=== PATIENT | female | born 1985 | race Caucasian/White ===

== ENCOUNTER 2019-01-26 11:22 | Outpatient (CLI) | payer MEDICAID ==
[2019-01-26 17:30] LABS: HGB - HEMOGLOBIN 13.1 g/dL (12.0-16.0); MEAN CORPUSCULAR HEMOGLOBIN 31.5 pg (27.0-31.0); MEAN CORPUSCULAR HGB CONC 33.8 g/dL (32.0-36.0); MEAN CORPUSCULAR VOLUME 93.3 fL (81.0-99.0); MEAN PLATELET VOLUME 10.5 fL (7.9-10.8); RED BLOOD COUNT 4.16 10^6/uL (4.20-5.40); RED CELL DISTRIBUTION WIDTH 13.2 % (12.0-15.0); WHITE BLOOD COUNT 5.9 x10^3/uL (4.8-10.8)
[2019-01-26 18:13] LABS: ALBUMIN/GLOBULIN RATIO 1.3 (1.0-2.2); CALCIUM 9.4 mg/dL (8.5-10.3); CREATININE 0.5 mg/dL (0.4-1.0); TOTAL PROTEIN 7.1 g/dL (6.7-8.2)
== END 2019-01-26 11:23 | disposition home or self-care (01) ==
LOC: LAB.S 11:22
PROVIDERS: ATTEND Internal Medicine
DX: I51.3 Intracardiac thrombosis, not elsewhere classified (principal); Z79.01 Long term (current) use of anticoagulants; I50.9 Heart failure, unspecified
CPT/HCPCS: 36415; 80053; 84443; 85027; 85610

== ENCOUNTER 2019-02-02 10:51 | Outpatient (CLI) | payer MEDICAID | END 2019-02-02 10:52 | disposition home or self-care (01) | LOC: LAB.S 10:51 | PROVIDERS: ATTEND Internal Medicine | DX: Z79.01 Long term (current) use of anticoagulants (principal); I51.3 Intracardiac thrombosis, not elsewhere classified | CPT/HCPCS: 85610 ==

== ENCOUNTER 2019-02-10 11:29 | Outpatient (CLI) | payer MEDICAID | END 2019-02-10 11:30 | disposition home or self-care (01) | LOC: LAB.S 11:29 | PROVIDERS: ATTEND Internal Medicine | DX: I51.3 Intracardiac thrombosis, not elsewhere classified (principal); Z79.01 Long term (current) use of anticoagulants | CPT/HCPCS: 85610 ==

== ENCOUNTER 2019-02-17 11:31 | Outpatient (CLI) | payer MEDICAID | END 2019-02-17 11:32 | disposition home or self-care (01) | LOC: LAB.S 11:31 | PROVIDERS: ATTEND Internal Medicine | DX: Z79.01 Long term (current) use of anticoagulants (principal); I51.3 Intracardiac thrombosis, not elsewhere classified | CPT/HCPCS: 85610 ==

== ENCOUNTER 2019-02-24 12:50 | Outpatient (CLI) | payer MEDICAID | END 2019-02-24 12:51 | disposition home or self-care (01) | LOC: LAB.S 12:50 | PROVIDERS: ATTEND Internal Medicine | DX: Z79.01 Long term (current) use of anticoagulants (principal); I51.3 Intracardiac thrombosis, not elsewhere classified | CPT/HCPCS: 85610 ==

== ENCOUNTER 2019-03-03 11:34 | Outpatient (CLI) | payer MEDICAID | END 2019-03-03 11:35 | disposition home or self-care (01) | LOC: LAB.S 11:34 | PROVIDERS: ATTEND Internal Medicine | DX: Z79.01 Long term (current) use of anticoagulants (principal); I51.3 Intracardiac thrombosis, not elsewhere classified | CPT/HCPCS: 85610 ==

== ENCOUNTER 2019-03-10 13:34 | Outpatient (CLI) | payer MEDICAID | END 2019-03-10 13:35 | disposition home or self-care (01) | LOC: LAB.S 13:34 | PROVIDERS: ATTEND Internal Medicine | DX: Z79.01 Long term (current) use of anticoagulants (principal); I51.3 Intracardiac thrombosis, not elsewhere classified | CPT/HCPCS: 85610 ==

== ENCOUNTER 2019-03-24 13:52 | Outpatient (CLI) | payer MEDICAID | END 2019-03-24 13:53 | disposition home or self-care (01) | LOC: LAB.S 13:52 | PROVIDERS: ATTEND Internal Medicine | DX: Z79.01 Long term (current) use of anticoagulants (principal); I51.3 Intracardiac thrombosis, not elsewhere classified | CPT/HCPCS: 85610 ==

== ENCOUNTER 2019-04-22 12:30 | Outpatient (CLI) | payer MEDICAID | END 2019-04-22 12:31 | disposition home or self-care (01) | LOC: LAB.S 12:30 | PROVIDERS: ATTEND Internal Medicine | DX: Z79.01 Long term (current) use of anticoagulants (principal); I51.3 Intracardiac thrombosis, not elsewhere classified | CPT/HCPCS: 85610 ==

== ENCOUNTER 2019-05-20 11:26 | Outpatient (CLI) | payer MEDICAID | END 2019-05-20 11:27 | disposition home or self-care (01) | LOC: LAB.S 11:26 | PROVIDERS: ATTEND Internal Medicine | DX: Z79.01 Long term (current) use of anticoagulants (principal); I51.3 Intracardiac thrombosis, not elsewhere classified | CPT/HCPCS: 85610 ==

== ENCOUNTER 2019-05-27 13:15 | Outpatient (CLI) | payer MEDICAID | END 2019-05-27 13:16 | disposition home or self-care (01) | LOC: LAB.S 13:15 | PROVIDERS: ATTEND Internal Medicine | DX: Z79.01 Long term (current) use of anticoagulants (principal); I51.3 Intracardiac thrombosis, not elsewhere classified | CPT/HCPCS: 85610 ==

== ENCOUNTER 2019-06-15 14:09 | Outpatient (CLI) | payer MEDICAID | END 2019-06-15 14:10 | disposition home or self-care (01) | LOC: LAB.S 14:09 | PROVIDERS: ATTEND Internal Medicine | DX: I51.3 Intracardiac thrombosis, not elsewhere classified (principal); Z79.01 Long term (current) use of anticoagulants | CPT/HCPCS: 85610 ==

== ENCOUNTER 2019-06-22 13:10 | Outpatient (CLI) | payer MEDICAID | END 2019-06-22 13:11 | disposition home or self-care (01) | LOC: LAB.S 13:10 | PROVIDERS: ATTEND Internal Medicine | DX: Z79.01 Long term (current) use of anticoagulants (principal); I51.3 Intracardiac thrombosis, not elsewhere classified | CPT/HCPCS: 85610 ==

== ENCOUNTER 2019-06-29 11:59 | Outpatient (CLI) | payer MEDICAID | END 2019-06-29 12:00 | disposition home or self-care (01) | LOC: LAB.S 11:59 | PROVIDERS: ATTEND Internal Medicine | DX: I51.3 Intracardiac thrombosis, not elsewhere classified (principal); Z79.01 Long term (current) use of anticoagulants | CPT/HCPCS: 85610 ==

== ENCOUNTER 2019-07-14 13:08 | Outpatient (CLI) | payer MEDICAID | END 2019-07-14 13:09 | disposition home or self-care (01) | LOC: LAB.S 13:08 | PROVIDERS: ATTEND Internal Medicine | DX: I51.3 Intracardiac thrombosis, not elsewhere classified (principal); Z79.01 Long term (current) use of anticoagulants | CPT/HCPCS: 85610 ==

== ENCOUNTER 2019-07-19 13:58 | Outpatient (CLI) | payer MEDICAID | END 2019-07-19 13:59 | disposition home or self-care (01) | LOC: LAB.S 13:58 | PROVIDERS: ATTEND Internal Medicine | DX: I51.3 Intracardiac thrombosis, not elsewhere classified (principal); Z79.01 Long term (current) use of anticoagulants | CPT/HCPCS: 85610 ==

== ENCOUNTER 2019-07-26 11:05 | Outpatient (CLI) | payer MEDICAID | END 2019-07-26 11:06 | disposition home or self-care (01) | LOC: LAB.S 11:05 | PROVIDERS: ATTEND Internal Medicine | DX: I51.3 Intracardiac thrombosis, not elsewhere classified (principal); Z79.01 Long term (current) use of anticoagulants | CPT/HCPCS: 85610 ==

== ENCOUNTER 2019-09-03 12:25 | Outpatient (CLI) | payer MEDICAID | END 2019-09-03 12:26 | disposition home or self-care (01) | LOC: LAB 12:25 | PROVIDERS: ATTEND Internal Medicine | DX: I51.3 Intracardiac thrombosis, not elsewhere classified (principal); Z79.01 Long term (current) use of anticoagulants | CPT/HCPCS: 85610 ==

== ENCOUNTER 2019-10-18 12:39 | Outpatient (CLI) | payer MEDICAID | END 2019-10-18 12:40 | disposition home or self-care (01) | LOC: LAB.S 12:39 | PROVIDERS: ATTEND Internal Medicine | DX: I51.3 Intracardiac thrombosis, not elsewhere classified (principal); Z79.01 Long term (current) use of anticoagulants | CPT/HCPCS: 85610 ==

== ENCOUNTER 2019-10-25 14:43 | Outpatient (CLI) | payer MEDICAID | END 2019-10-25 14:44 | disposition home or self-care (01) | LOC: LAB.S 14:43 | PROVIDERS: ATTEND Internal Medicine | DX: I51.3 Intracardiac thrombosis, not elsewhere classified (principal); Z79.01 Long term (current) use of anticoagulants | CPT/HCPCS: 85610 ==

== ENCOUNTER 2019-10-29 13:23 | Outpatient (CLI) | payer MEDICAID | END 2019-10-29 13:24 | disposition home or self-care (01) | LOC: LAB.S 13:23 | PROVIDERS: ATTEND Internal Medicine | DX: I51.3 Intracardiac thrombosis, not elsewhere classified (principal); Z79.01 Long term (current) use of anticoagulants | CPT/HCPCS: 85610 ==

== ENCOUNTER 2019-11-05 13:06 | Outpatient (CLI) | payer MEDICAID | END 2019-11-05 13:07 | disposition home or self-care (01) | LOC: LAB.S 13:06 | PROVIDERS: ATTEND Internal Medicine | DX: I51.3 Intracardiac thrombosis, not elsewhere classified (principal); Z79.01 Long term (current) use of anticoagulants | CPT/HCPCS: 85610 ==

== ENCOUNTER 2019-11-19 11:47 | Outpatient (CLI) | payer MEDICAID | END 2019-11-19 11:48 | disposition home or self-care (01) | LOC: LAB.S 11:47 | PROVIDERS: ATTEND Internal Medicine | DX: I51.3 Intracardiac thrombosis, not elsewhere classified (principal); Z79.01 Long term (current) use of anticoagulants | CPT/HCPCS: 85610 ==

== ENCOUNTER 2019-12-20 08:48 | Outpatient (CLI) | payer MEDICAID | END 2019-12-20 08:49 | disposition home or self-care (01) | LOC: LAB 08:48 | PROVIDERS: ATTEND Internal Medicine | DX: I51.3 Intracardiac thrombosis, not elsewhere classified (principal); Z79.01 Long term (current) use of anticoagulants | CPT/HCPCS: 85610 ==

== ENCOUNTER 2020-01-28 13:38 | Outpatient (CLI) | payer MEDICAID | END 2020-01-28 13:39 | disposition home or self-care (01) | LOC: LAB 13:38 | PROVIDERS: ATTEND Internal Medicine | DX: I51.3 Intracardiac thrombosis, not elsewhere classified (principal) | CPT/HCPCS: 85610 ==

== ENCOUNTER 2020-01-31 11:20 | Outpatient (CLI) | payer MEDICAID | END 2020-01-31 11:21 | disposition home or self-care (01) | LOC: LAB 11:20 | PROVIDERS: ATTEND Internal Medicine | DX: I51.3 Intracardiac thrombosis, not elsewhere classified (principal); Z79.01 Long term (current) use of anticoagulants | CPT/HCPCS: 85610 ==

== ENCOUNTER 2020-02-08 15:03 | Outpatient (CLI) | payer MEDICAID | END 2020-02-08 15:04 | disposition home or self-care (01) | LOC: LAB 15:03 | PROVIDERS: ATTEND Internal Medicine | DX: I51.3 Intracardiac thrombosis, not elsewhere classified (principal); Z79.01 Long term (current) use of anticoagulants | CPT/HCPCS: 85610 ==

== ENCOUNTER 2020-02-17 10:04 | Outpatient (CLI) | payer MEDICAID | END 2020-02-17 10:05 | disposition home or self-care (01) | LOC: LAB 10:04 | PROVIDERS: ATTEND Internal Medicine | DX: I51.3 Intracardiac thrombosis, not elsewhere classified (principal); Z79.01 Long term (current) use of anticoagulants | CPT/HCPCS: 85610 ==

== ENCOUNTER 2020-03-31 14:40 | Outpatient (CLI) | payer MEDICAID | END 2020-03-31 14:41 | disposition home or self-care (01) | LOC: LAB 14:40 | PROVIDERS: ATTEND Physician Assistant | DX: Z79.01 Long term (current) use of anticoagulants (principal) | CPT/HCPCS: 85610 ==

== ENCOUNTER 2020-04-25 12:52 | Outpatient (CLI) | payer MEDICAID | END 2020-04-25 12:53 | disposition home or self-care (01) | LOC: LAB 12:52 | PROVIDERS: ATTEND Physician Assistant | DX: Z79.01 Long term (current) use of anticoagulants (principal) | CPT/HCPCS: 85610 ==

== ENCOUNTER 2020-05-04 11:39 | Outpatient (CLI) | payer MEDICAID | END 2020-05-04 11:40 | disposition home or self-care (01) | LOC: LAB 11:39 | PROVIDERS: ATTEND Physician Assistant | DX: Z79.01 Long term (current) use of anticoagulants (principal) | CPT/HCPCS: 85610 ==

== ENCOUNTER 2020-07-06 11:02 | Outpatient (CLI) | payer MEDICAID ==
[2020-07-06 11:42] LABS: BASOPHILS # (AUTO) 0.1 10^3/uL (0.0-0.1); BASOPHILS % (AUTO) 0.5 %; EOSINOPHILS # (AUTO) 0.6 10^3/uL (0.0-0.7); EOSINOPHILS % (AUTO) 6.1 %; HCT - HEMATOCRIT 25.5 % (37.0-47.0); HGB - HEMOGLOBIN 7.9 g/dL (12.0-16.0); LYMPHOCYTES # (AUTO) 1.3 10^3/uL (1.5-3.5); MEAN PLATELET VOLUME 9.8 fL (7.9-10.8); MONOCYTES # (AUTO) 0.7 10^3/uL (0.0-1.0); MONOCYTES % (AUTO) 7.2 %; NEUTROPHILS # (AUTO) 7.3 10^3/uL (1.5-6.6); NEUTROPHILS % (AUTO) 71.7 %; NRBC ABSOLUTE COUNT (AUTO) 0.02 x10^3/uL; NUCLEATED RED BLOOD CELLS AUTO 0.2 /100WBC; PLT - PLATELET COUNT 163 10^3/uL (130-450); RED BLOOD COUNT 2.55 10^6/uL (4.20-5.40); RED CELL DISTRIBUTION WIDTH 14.2 % (12.0-15.0); WHITE BLOOD COUNT 10.2 x10^3/uL (4.8-10.8)
== END 2020-07-06 11:03 | disposition home or self-care (01) ==
LOC: LAB 11:02
PROVIDERS: ATTEND Thoracic Surgery (Cardiothoracic Vascular Surgery)
DX: D15.1 Benign neoplasm of heart (principal); Z79.01 Long term (current) use of anticoagulants
CPT/HCPCS: 36415; 85025; 85610

== ENCOUNTER 2020-07-24 16:37 | Outpatient (CLI) | payer MEDICAID | END 2020-07-24 16:38 | disposition home or self-care (01) | LOC: COV 16:37 | PROVIDERS: ATTEND Radiology Diagnostic Radiology | DX: Z01.812 Encounter for preprocedural laboratory examination (principal); Z20.822 Contact with and (suspected) exposure to COVID-19 ==

== ENCOUNTER 2020-11-24 10:02 | Emergency (ER) | payer MEDICAID ==
[2020-11-24 10:20] VITALS: BP 106/93
--- NOTE | 2020-11-24 10:38 | ED Physician Documentation ---
History of Present Illness - Stated complaint Stated Complaint: LT LEG SWELLING - Chief complaint Chief Complaint: Wound - History obtained from History obtained from: Patient - History of Present Illness Timing: Yesterday Pain level max: 0 Pain level now: 0 - Additonal information Additional information: Patient is a 35-year-old female who presents to the emergency department with swelling to the left thigh. She received several vaccinations yesterday as she has had a splenectomy. She received her meningitis vaccinations and then a pneumococcal vaccination. Concerned about potential cellulitis. No fevers. No chills. She states that the area is red, swollen and warm. Nothing makes it better or worse Review of Systems Constitutional: denies: Fever, Chills GI: denies: Vomiting, Diarrhea Skin: denies: Rash Musculoskeletal: denies: Neck pain, Back pain Neurologic: denies: Headache PD PAST MEDICAL HISTORY - Past Medical History Past Medical History: No - Past Surgical History Other past surgical history: splenectomy - Present Medications Home Medications: Ambulatory Orders Medication Instructions Recorded Confirmed Escitalopram Oxalate [Lexapro] 1 tab PO DAILY 11/24/20 11/24/20 Losartan Potassium 12.5 mg PO DAILY 11/24/20 11/24/20 Rivaroxaban [Xarelto] 1 tab PO DAILY 11/24/20 11/24/20 carvediloL [Coreg] 1 tab PO BID 11/24/20 11/24/20 cephALEXin [Keflex] 500 mg PO Q6H #28 cap 11/24/20 - Allergies Allergies/Adverse Reactions: Allergies Allergy/AdvReac Type Severity Reaction Status Date / Time heparin Allergy Unknown Verified 11/24/20 10:20 - Living Situation Living Situation: reports: With family Living Arrangement: reports: At home - Social History Does the pt have substance abuse?: No PD ED PE NORMAL - Vitals Vital signs reviewed: Yes - General General: Alert and oriented X 3, No acute distress - HEENT HEENT: Moist mucous membranes - Neck Neck: Supple, no meningeal sign - Cardiac Cardiac: RRR - Respiratory Respiratory: No respiratory distress - Derm Derm: Warm and dry - Extremities Extremities: Other (Mild erythema to the left thigh at the injection site. Light pink in color. Not warm. Mild swelling.) - Neuro Neuro: Alert and oriented X 3 - Psych Psych: Normal mood, Normal affect Results - Vitals Vitals: Vital Signs - 24 hr 11/24/20 10:14 Temperature 36.3 C L Heart Rate 79 Respiratory 16 Rate Blood Pressure 106/93 H O2 Saturation 96 Oxygen O2 Source Room air PD MEDICAL DECISION MAKING - ED course Complexity details: reviewed results, re-evaluated patient, considered differential, d/w patient ED course: Patient appears to have a localized reaction to the vaccination from yesterday, likely pneumococcal vaccine. Does not appear infected at this time. If this does not improve as expected, she can start the cephalexin and follow-up with her doctor next week. No evidence of anaphylaxis. No respiratory difficulties. Patient counseled regarding signs and symptoms for which I believe and urgent re-evaluation would be necessary. Patient with good understanding of and agreement to plan and is comfortable going home at this time This document was made in part using voice recognition software. While efforts are made to proofread this document, sound alike and grammatical errors may occur. Departure - Departure Disposition: 01 Home, Self Care Clinical Impression: Local reaction to pneumococcal vaccine Qualifiers: Encounter type: initial encounter Qualified Code(s): T50.A95A - Adverse effect of other bacterial vaccines, initial encounter Condition: Good Instructions: Vaccination Pneumococcal Follow-Up: DO BEARD PA-C [Primary Care Provider] - As Needed Prescriptions: cephALEXin [Keflex] 500 mg PO Q6H #28 cap Comments: This appears to be a local reaction to the vaccine you received yesterday, it should improve over the next 24 hours, if it worsens, you can start the antibiotics. Discharge Date/Time: 11/24/20 10:45
== END 2020-11-24 10:45 | disposition home or self-care (01) ==
LOC: ED 10:02
DX: M79.89 Other specified soft tissue disorders (principal); T50.A95A Adverse effect of other bacterial vaccines, initial encounter; Z79.01 Long term (current) use of anticoagulants
CPT/HCPCS: 99282; 99284

== ENCOUNTER 2021-05-26 05:16 | Emergency (ER) | payer MEDICAID ==
--- NOTE | 2021-05-26 05:35 | ED Physician Documentation ---
History of Present Illness - Stated complaint Stated Complaint: FEVER, SORE THROAT, BODY ACHE, CHILLS, DIZZY - Chief complaint Chief Complaint: General - History obtained from History obtained from: Patient - History of Present Illness Timing: Enter time (03:30), Today Pain level now: 4 (generalized myalgias) Improved by: no ameliorating factors Worsened by: no excerbating factors - Additonal information Additional information: woke at 3:30 AM this morning with generalized myalgias, fever 101.4, generalize headache, jaw pain, sore throat, mild dyspnea, dry cough. She is not COVID vaccinated (she says one of her medical practitioners advised against it). She has medical history that includes PPM, atrial fibrilation, and multiple atrial myxomas requiring surgical removal. 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 Review of Systems Constitutional: reports: Fever, Chills, Myalgias, Sweats Nose: reports: Rhinorrhea / runny nose, Congestion Throat: reports: Sore throat Cardiac: reports: Chest pain / pressure. denies: Palpitations, Pedal edema Respiratory: reports: Dyspnea, Cough GI: reports: Reviewed and negative Neurologic: reports: Headache PD PAST MEDICAL HISTORY - Past Medical History Past Medical History: Yes Cardiovascular: Hypertension, Atrial fibrillation, Valve disorder Other Past Medical History: atrial myxomas - Past Surgical History Past Surgical History: Yes General: Splenectomy - Present Medications Home Medications: Ambulatory Orders Medication Instructions Recorded Confirmed Escitalopram Oxalate [Lexapro] 1 tab PO DAILY 11/24/20 11/24/20 Losartan Potassium 12.5 mg PO DAILY 11/24/20 11/24/20 Rivaroxaban [Xarelto] 1 tab PO DAILY 11/24/20 11/24/20 carvediloL [Coreg] 1 tab PO BID 11/24/20 11/24/20 cephALEXin [Keflex] 500 mg PO Q6H #28 cap 11/24/20 - Allergies Allergies/Adverse Reactions: Allergies Allergy/AdvReac Type Severity Reaction Status Date / Time heparin Allergy Unknown Verified 05/26/21 05:25 - Living Situation Living Arrangement: reports: At home - Social History Does the pt have substance abuse?: No PD ED PE NORMAL - Vitals Vital signs reviewed: Yes - General General: Alert and oriented X 3, No acute distress, Well developed/nourished - HEENT HEENT: Pharynx benign - Neck Neck: Supple, no meningeal sign - Cardiac Cardiac: RRR, No murmur - Respiratory Respiratory: No respiratory distress, Clear bilaterally - Abdomen Abdomen: Soft, Non tender - Extremities Extremities: No edema Results - Vitals Vitals: Oxygen O2 Source Room air - EKG (time done) No standard instances Rate: Rate (enter#) (80) Rhythm: Paced (atrial-sensed, ventricular paced) - Labs Labs: Laboratory Tests 05/26/21 05/26/21 05:48 08:47 Troponin I High Sens 3.5 Nasal Adenovirus (PCR) NOT DETECTED Nasal B. parapertussis DNA (PCR) NOT DETECTED Nasal Coronavir 229E PCR NOT DETECTED Nasal Coronavir HKU1 PCR NOT DETECTED Nasal Coronavir NL63 PCR NOT DETECTED Nasal Coronavir OC43 PCR NOT DETECTED Nasal Enterovir/Rhinovir PCR NOT DETECTED Nasal Influenza B PCR NOT DETECTED Nasal Influenza A PCR NOT DETECTED Nasal Parainfluen 1 PCR NOT DETECTED Nasal Parainfluen 2 PCR NOT DETECTED Nasal Parainfluen 3 PCR NOT DETECTED Nasal Parainfluen 4 PCR NOT DETECTED Nasal RSV (PCR) NOT DETECTED Nasal B.pertussis DNA PCR NOT DETECTED Nasal C.pneumoniae (PCR) NOT DETECTED Kevin Human Metapneumo PCR NOT DETECTED Nasal M.pneumoniae (PCR) NOT DETECTED Nasal SARS-CoV-2 (PCR) DETECTED A PD MEDICAL DECISION MAKING - ED course Complexity details: reviewed results, re-evaluated patient, considered differential, d/w patient ED course: respiratory panel returns POSITIVE for COVID-19. This result was d/w patient. Initially, no other tests needed, given no respiratory distress, normal room-air pulse ox, and lungs CTA bilaterally on exam. She had increasing chest discomfort, however, later in stay and thus EKG and troponin were ordered. EKG shows 80bpm atrial-sensed ventricular pacing, and high-sensitivity troponin is normal. She is also given tylenol which reduced fever and on reevaluation, she reports feeling much improved with resolution of chest pain. Return precautions discussed and advised to follow CDC guidelines regarding quarantine/isolation. Departure - Departure Disposition: 01 Home, Self Care Clinical Impression: COVID-19 Condition: Good Instructions: ED Viral Syndrome Comments: You tested POSITIVE for COVID-19 tonight. Follow the latest CDC guidelines regarding quarantine/isolation (use the information below, although you can also just Google "CDC quarantine guidelines"): https://www.cdc.gov/coronavirus/2019-ncov/your-health/quarantine-isolation.html Discharge Date/Time: 05/26/21 09:59
[2021-05-26 07:01] LABS: CORONAVIRUS 229E-RESP PCR NOT DETECTED; CORONAVIRUS HKU1-RESP PCR NOT DETECTED; CORONAVIRUS NL63-RESP PCR NOT DETECTED; CORONAVIRUS OC43-RESP PCR NOT DETECTED
[2021-05-26 07:02] LABS: B. PARAPERTUSSIS- RESP PCR PAN NOT DETECTED; B. PERTUSSIS- RESP PCR PANEL NOT DETECTED; C. PNEUMONIAE- RESP PCR PANEL NOT DETECTED; HUMAN METAPNEUMOVIRUS NOT DETECTED; INFLUENZA A- RESP PCR PANEL NOT DETECTED; INFLUENZA B - RESP PCR PANEL NOT DETECTED; M. PNEUMONIAE- RESP PCR PANEL NOT DETECTED; PARAINFLUENZA VIRUS 1 NOT DETECTED; PARAINFLUENZA VIRUS 2 NOT DETECTED; PARAINFLUENZA VIRUS 3 NOT DETECTED; PARAINFLUENZA VIRUS 4 NOT DETECTED; RHINOVIRUS/ENTEROVIRUS NOT DETECTED; RSV- RESP PCR PANEL NOT DETECTED; SARS-CoV-2 -RESP PCR PANEL DETECTED
[2021-05-26] MEDS ORDERED: ACETAMINOPHEN 325 MG TABLET PO STA (08:28)
[2021-05-26 09:12] VITALS: BP 110/71
== END 2021-05-26 09:59 | disposition home or self-care (01) ==
LOC: ED 05:16
DX: U07.1 COVID-19 (principal)
CPT/HCPCS: 0202U; 36415; 84484; 93005; 99282; 99283; A9270

== ENCOUNTER 2023-08-06 08:39 | Emergency (ER) | payer MEDICAID ==
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
[2023-08-06 08:59] VITALS: BP 128/80; O2SAT 99
[2023-08-06] MEDS: HYDROcod/ACETAM 5/325 MG TABLET PO STA (09:24)
[2023-08-06] MEDS: IBUPROFEN 600 MG TABLET PO STA (09:24)
--- NOTE | 2023-08-06 10:12 | XRAY Report ---
PROCEDURE: Foot 3+V RT INDICATIONS: inversion injury foot and ankle TECHNIQUE: 3 views of the foot were acquired. COMPARISON: None. FINDINGS: Bones: Small likely avulsion fracture along the dorsal anterior talus.. No suspicious bony lesions. Soft tissues: No tibiotalar joint effusion. Achilles tendon appears normal. IMPRESSION: Small avulsion fracture along the dorsal anterior talus. Reviewed by: Tyree Harris MD on 08/06/2023 10:11 AM PDT Approved by: Tyree Harris MD on 08/06/2023 10:11 AM PDT Station ID: [id number]
--- NOTE | 2023-08-06 10:12 | XRAY Report ---
PROCEDURE: Tib/Fib RT INDICATIONS: ankle injury yest TECHNIQUE: 2 views of the tibia and fibula were acquired. COMPARISON: None. FINDINGS: Bones: Likely small avulsion fracture along the dorsal anterior talus, within the region of pain.. No suspicious bony lesions. Soft tissues: No suspicious soft tissue calcifications or masses. IMPRESSION: Small avulsion fracture along the dorsal anterior talus in the region of pain. Reviewed by: Tyree Harris MD on 08/06/2023 10:10 AM PDT Approved by: Tyree Harris MD on 08/06/2023 10:10 AM PDT Station ID: [id number]
[2023-08-06] MEDS: oxyCODONE 5 MG TABLET PO STA (11:38)
== END 2023-08-06 11:41 | disposition home or self-care (01) ==
LOC: ED 08:39
DX: S92.101A Unspecified fracture of right talus, initial encounter for closed fracture (principal); S93.431A Sprain of tibiofibular ligament of right ankle, initial encounter; S83.91XA Sprain of unspecified site of right knee, initial encounter; X50.1XXA Overexertion from prolonged static or awkward postures, initial encounter; Y93.I9 Activity, other involving external motion; I10 Essential (primary) hypertension; I48.91 Unspecified atrial fibrillation; Z95.0 Presence of cardiac pacemaker
CPT/HCPCS: 73590; 73630; 99283; 99284; A9270

== ENCOUNTER 2023-08-18 08:00 | Outpatient (CLI) | payer MEDICAID ==
--- NOTE | 2023-08-18 16:20 | XRAY Report ---
PROCEDURE: Ankle 3 View RT INDICATIONS: RIGHT ANKLE PAIN TECHNIQUE: 3 views of the ankle were acquired. COMPARISON: CT lower extremity 08/18/2023 FINDINGS: Bones: Previously identified avulsion fractures of the dorsal talar head and anterior calcaneus are again identified. No significant interval change. Soft tissues: No tibiotalar joint effusion. Achilles tendon appears normal. IMPRESSION: Stable alignment of dorsal talar head and anterior calcaneal fractures. Reviewed by: Marychuy Thomas MD on 08/18/2023 4:18 PM PDT Approved by: Marychuy Thomas MD on 08/18/2023 4:18 PM PDT Station ID: [id number]
== END 2023-08-18 23:59 | disposition home or self-care (01) ==
LOC: DI.WOS 08:00
PROVIDERS: ATTEND Orthopaedic Surgery
DX: S92.121D Displaced fracture of body of right talus, subsequent encounter for fracture with routine healing (principal); S92.021D Displaced fracture of anterior process of right calcaneus, subsequent encounter for fracture with routine healing

== ENCOUNTER 2023-08-18 12:46 | Outpatient (CLI) | payer MEDICAID ==
--- NOTE | 2023-08-18 15:28 | CT Report ---
PROCEDURE: Lower Extremity RT WO INDICATIONS: R TALUS FX TECHNIQUE: Noncontrast 3-mm axial sections acquired from the distal tibial shaft to the talar dome, with coronal and sagittal reformats. For radiation dose reduction, the following was used: automated exposure c ontrol, adjustment of mA and/or kV according to patient size. COMPARISON: 08/18/2023. FINDINGS: Image quality: Excellent. Bones: Again seen is a small avulsion fracture of the dorsal talus head, without callus formation. T he ankle mortise is congruent. No dislocation of the ankle. There is a small avulsion fracture of the anterior process of the calcaneus, minimally displaced. Soft tissues: Mild subcutaneous edema of the dorsal forefoot. The extensor and the flexor tendons ar e unremarkable. No significant tibiotalar effusion. Impression: Small avulsion fracture of the dorsal talus head and of the anterior process of the calca neus. Reviewed by: Melba Kraus MD on 08/18/2023 3:27 PM PDT Approved by: Melba Kraus MD on 08/18/2023 3:27 PM PDT Station ID: [id number]
== END 2023-08-18 12:47 | disposition home or self-care (01) ==
LOC: DI 12:46
PROVIDERS: ATTEND Orthopaedic Surgery
DX: S92.151A Displaced avulsion fracture (chip fracture) of right talus, initial encounter for closed fracture (principal); S92.021A Displaced fracture of anterior process of right calcaneus, initial encounter for closed fracture

== ENCOUNTER 2023-09-05 09:26 | Outpatient (CLI) | payer MEDICAID ==
--- NOTE | 2023-09-05 11:51 | XRAY Report ---
PROCEDURE: Ankle 3+V RT INDICATIONS: DISP FX OF NECK OF RIGHT TALUS, INIT FOR CLOS FX TECHNIQUE: 3 views of the ankle were acquired. COMPARISON: Right ankle radiograph on August 18, 2023. CT foot on August 18, 2023. FINDINGS: Bones: Similar appearance of mildly displaced avulsion fracture of the dorsal talar head and anterio r process of the calcaneus, the latter of which is better seen on CT foot dated August 18, 2023. No si gnificant interval callus formation. Stable alignment. Ankle mortise is normally aligned. No suspic ious bony lesions. Soft tissues: No tibiotalar joint effusion. Achilles tendon appears normal. IMPRESSION: Similar appearance of mildly displaced avulsion fracture of the dorsal talar head and anterior proces s of the calcaneus. No significant interval osseous healing. Stable alignment. Reviewed by: Marc Candelario MD on 09/05/2023 11:49 AM PDT Approved by: Marc Candelario MD on 09/05/2023 11:49 AM PDT Station ID: [id number]
== END 2023-09-05 09:27 | disposition home or self-care (01) ==
LOC: DI 09:26
PROVIDERS: ATTEND Orthopaedic Surgery
DX: S92.111A Displaced fracture of neck of right talus, initial encounter for closed fracture (principal); S92.023 Displaced fracture of anterior process of unspecified calcaneus

== ENCOUNTER 2023-10-03 10:26 | Outpatient (CLI) | payer MEDICAID ==
--- NOTE | 2023-10-03 12:16 | XRAY Report ---
PROCEDURE: Foot 3+V RT INDICATIONS: FRACTURE OF NECK OF RIGHT TALUS TECHNIQUE: 3 views of the foot were acquired. COMPARISON: X-ray ankle 10/03/2023, 09/05/2023, CT lower extremity 08/18/2023 FINDINGS: Bones: Previously identified avulsion fracture of the dorsal tarsal head and anterior calcaneus pita r identified on prior CT exam overall is stable in appearance. Minimal interval healing with less pro minent appearance of fracture lucencies. No suspicious bony lesions. Soft tissues: No tibiotalar joint effusion. Achilles tendon appears normal. IMPRESSION: Stable alignment with slightly less prominent appearance of fracture lucencies demonstrating talar he ad and anterior calcaneal process fractures. Reviewed by: Marychuy Thomas MD on 10/03/2023 12:15 PM PDT Approved by: Marychuy Thomas MD on 10/03/2023 12:15 PM PDT Station ID: [id number]
--- NOTE | 2023-10-03 15:15 | XRAY Report ---
PROCEDURE: Ankle 3+V RT INDICATIONS: FRACTURE OF NECK OF RIGHT TALUS TECHNIQUE: 09/05/2023 views of the ankle were acquired. COMPARISON: None FINDINGS: Bones: Healing talar neck fracture shows remodeling of the fracture lines with bridging callus and n o interval displacement. Soft tissues: Soft tissues without radiopaque foreign body IMPRESSION: Healing talar fracture Reviewed by: Brice Sales MD on 10/03/2023 2:13 PM AKDT Approved by: Brice Sales MD on 10/03/2023 2:13 PM AKDT Station ID: [id number]
== END 2023-10-03 10:27 | disposition home or self-care (01) ==
LOC: DI 10:26
PROVIDERS: ATTEND Orthopaedic Surgery
DX: S92.111D Displaced fracture of neck of right talus, subsequent encounter for fracture with routine healing (principal); S92.021D Displaced fracture of anterior process of right calcaneus, subsequent encounter for fracture with routine healing

== ENCOUNTER 2023-12-17 15:19 | Emergency (ER) | payer MEDICAID, OTHER ==
[2023-12-17 15:48] LABS: BASOPHILS # (AUTO) 0.1 10^3/uL (0.0-0.1); BASOPHILS % (AUTO) 0.7 %; EOSINOPHILS # (AUTO) 0.3 10^3/uL (0.0-0.7); EOSINOPHILS % (AUTO) 1.9 %; HCT - HEMATOCRIT 40.4 % (37.0-47.0); HGB - HEMOGLOBIN 13.9 g/dL (12.0-16.0); LYMPHOCYTES # (AUTO) 2.5 10^3/uL (1.5-3.5); MEAN CORPUSCULAR HEMOGLOBIN 31.7 pg (27.0-31.0); MEAN CORPUSCULAR HGB CONC 34.4 g/dL (32.0-36.0); MEAN PLATELET VOLUME 8.7 fL (7.9-10.8); MONOCYTES # (AUTO) 1.4 10^3/uL (0.0-1.0); MONOCYTES % (AUTO) 9.8 %; NEUTROPHILS # (AUTO) 9.5 10^3/uL (1.5-6.6); NEUTROPHILS % (AUTO) 69.2 %; PLT - PLATELET COUNT 511 10^3/uL (130-450); RED BLOOD COUNT 4.39 10^6/uL (4.20-5.40); RED CELL DISTRIBUTION WIDTH 13.5 % (12.0-15.0); WHITE BLOOD COUNT 13.7 x10^3/uL (4.8-10.8)
[2023-12-17 16:02] LABS: ALBUMIN 4.4 g/dL (3.2-5.5); ALBUMIN/GLOBULIN RATIO 1.6 (1.0-2.2); BILIRUBIN,TOTAL 0.8 mg/dL (0.2-1.0); CALCIUM 9.9 mg/dL (8.5-10.3); CREATININE 0.6 mg/dL (0.6-1.3); POTASSIUM 3.8 mmol/L (3.5-4.5); TOTAL PROTEIN 7.2 g/dL (6.4-8.9)
[2023-12-17 19:11] LABS: BILIRUBIN,URINE NEGATIVE (NEGATIVE); GLUCOSE, URINE (UA) NEGATIVE (NEGATIVE); KETONES,URINE (UA) NEGATIVE (NEGATIVE); LEUKOCYTE ESTERASE, URINE NEGATIVE (NEGATIVE); NITRITE,URINE NEGATIVE (NEGATIVE); OCCULT BLOOD,URINE NEGATIVE (NEGATIVE); PROTEIN,URINE NEGATIVE (NEGATIVE); UROBILINOGEN,URINE 0.2 (NORMAL) E.U./dL (NORMAL)
[2023-12-17 19:14] LABS: CLARITY,URINE CLEAR (CLEAR); HCG UR QUAL NEGATIVE
--- NOTE | 2023-12-17 19:25 | ED Physician Documentation ---
PD HPI ABD PAIN - Stated complaint Stated Complaint: - Chief complaint Chief Complaint: UTI - History obtained from History obtained from: Patient - Additional information Additional information: HPI from patient. Patient states "I think I have a urinary tract infection". c/o burning dysuria, urinary frequency, and sensation of incomplete voiding x yesterday. She does not offer c/o abdominal pain to me, but on ROS, she says she has some mild painful discomfort across lower abdomen, predominantly suprapubic (constant although worse with voiding). Review of Systems Constitutional: denies: Fever, Chills, Sweats GI: denies: Abdominal Pain, Nausea, Vomiting : reports: Dysuria, Frequency. denies: Hematuria, Now [facility] PD PAST MEDICAL HISTORY - Past Medical History Cardiovascular: Hypertension, Atrial fibrillation, Valve disorder, Other Respiratory: None Neuro: None Endocrine/Autoimmune: None GI: None BUTTONHOLE MARKER: None : None Psych: None Musculoskeletal: None Derm: None - Past Surgical History Past Surgical History: Yes General: Splenectomy Cardiovascular: CABG, Valve replacement, Pacemaker, Other - Present Medications Home Medications: Ambulatory Orders Medication Instructions Recorded Confirmed No Known Home Medications 12/17/23 12/17/23 - Allergies Allergies/Adverse Reactions: Allergies Allergy/AdvReac Type Severity Reaction Status Date / Time heparin Allergy Unknown Verified 12/17/23 15:21 - Social History Does the pt smoke?: No Smoking Status: Never smoker Does the pt drink ETOH?: Yes Does the pt have substance abuse?: No - Immunizations Immunizations are current?: No Immunizations: Other immun not current - POLST Patient has POLST: No PD ED PE NORMAL - Vitals Vital signs reviewed: Yes - General General: Alert and oriented X 3, No acute distress, Well developed/nourished - Cardiac Cardiac: RRR, No murmur - Respiratory Respiratory: No respiratory distress, Clear bilaterally - Abdomen Abdomen: Normal bowel sounds, Soft, Non distended, Other (mild TTP LLQ (only to deep palpation) without rebound or guarding) - Back Back: No CVA TTP - Derm Derm: Normal color, Warm and dry, No rash Results - Vitals Vitals: Oxygen O2 Source Room air - Labs Labs: Laboratory Tests 12/17/23 12/17/23 12/17/23 15:30 15:39 15:39 WBC 13.7 H RBC 4.39 Hgb 13.9 Hct 40.4 MCV 92.0 MCH 31.7 H MCHC 34.4 RDW 13.5 Plt Count 511 H MPV 8.7 Neut # (Auto) 9.5 H Lymph # (Auto) 2.5 [place] # (Auto) 1.4 H Eos # (Auto) 0.3 Baso # (Auto) 0.1 Absolute Nucleated RBC 0.00 Nucleated RBC % 0.0 Sodium 137 Potassium 3.8 Chloride 103 Carbon Dioxide 27 Anion Gap 7.0 BUN 9 Creatinine 0.6 Estimated GFR (MDRD) 111 Glucose 110 H Calcium 9.9 Total Bilirubin 0.8 AST 15 ALT 14 Alkaline Phosphatase 74 Total Protein 7.2 Albumin 4.4 Globulin 2.8 Albumin/Globulin Ratio 1.6 Lipase 43 Urine Color LIGHT YELLOW Urine Clarity CLEAR Urine pH 6.0 Ur Specific [place] <=1.005 Urine Protein NEGATIVE Urine Glucose (UA) NEGATIVE Urine Ketones NEGATIVE Urine Occult Blood NEGATIVE Urine Nitrite NEGATIVE Urine Bilirubin NEGATIVE Urine Urobilinogen 0.2 (NORMAL) Ur Leukocyte Esterase NEGATIVE Ur Microscopic Review NOT INDICATED Urine Culture Comments NOT INDICATED Urine HCG, Qual NEGATIVE PD Medical Decision Making - ED course Complexity details: reviewed results, re-evaluated patient, considered differential, d/w patient ED course: Mild leukocytosis (WBC 13.7), mild thrombocytosis (511). Normal ER abdominal panel. Normal UA and negative UHCG. Results d/w patient. Etiology of symptoms is not apparent at this time. There is mild TTP LLQ on exam and further testing (specifically CT A/P) d/w patient, but this is unlikely to provide information that would international exchange coordinator, if any diagnostic findings (diverticulitis is considered, but latest outpatient guidelines would argue against abx and thus, again, management would remain conservative/symptomatic). Return precautions are carefully reviewed. Departure - Departure Disposition: 01 Home, Self Care Clinical Impression: Dysuria, Abdominal pain Condition: Good Instructions: ED Abdominal Pain Female Non-Specific Abdominal Pain, ED Dysuria Uncertain Cause Follow-Up: DEXTER RODRÍGUEZ MD [Primary Care Provider] - Comments: There were no concerning nor diagnostic findings on tonight's tests including blood tests and urinalysis. The urinalysis was normal; no evidence of urinary tract infection. The cause of your symptoms is not apparent at this time. Contact your primary care provider's office in the morning to arrange for next available appointment for reevaluation. Discharge Date/Time: 12/17/23 20:10
[2023-12-17 20:11] VITALS: BP 113/84; O2SAT 96
== END 2023-12-17 20:10 | disposition home or self-care (01) ==
LOC: ED 15:19
DX: R30.0 Dysuria (principal); R10.9 Unspecified abdominal pain; I10 Essential (primary) hypertension; I48.91 Unspecified atrial fibrillation; I25.10 Atherosclerotic heart disease of native coronary artery without angina pectoris; Z95.1 Presence of aortocoronary bypass graft; Z95.0 Presence of cardiac pacemaker; Z95.4 Presence of other heart-valve replacement
CPT/HCPCS: 36415; 80053; 81001; 81003; 81025; 83690; 85025; 87086; 99283

== ENCOUNTER 2023-12-20 14:18 | Emergency (ER) | payer SELFPAY ==
[2023-12-20 14:32] VITALS: O2SAT 99
[2023-12-20 14:44] LABS: BILIRUBIN,URINE NEGATIVE (NEGATIVE); GLUCOSE, URINE (UA) NEGATIVE (NEGATIVE); KETONES,URINE (UA) NEGATIVE (NEGATIVE); LEUKOCYTE ESTERASE, URINE SMALL (NEGATIVE); NITRITE,URINE NEGATIVE (NEGATIVE); OCCULT BLOOD,URINE TRACE-INTA (NEGATIVE); PROTEIN,URINE NEGATIVE (NEGATIVE); UROBILINOGEN,URINE 0.2 (NORMAL) E.U./dL (NORMAL)
[2023-12-20 14:46] LABS: CLARITY,URINE CLOUDY (CLEAR); HCG UR QUAL NEGATIVE
--- NOTE | 2023-12-20 14:55 | ED Physician Documentation ---
History of Present Illness - Stated complaint Stated Complaint: - Chief complaint Chief Complaint: Abd Pain - Additonal information Additional information: Patient is a 38-year-old female presenting to the emergency department with urinary symptoms. 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 Patient notes symptoms started on Friday she was seen here in the emergency department and had negative workup and was discharged home. Patient has brink drinking lots of water but continues to have worsening symptoms. She notes pain is worse in the back with her symptoms now. She notes dysuria frequency with urination and incontinence with her symptoms. She notes light-colored urine no abnormal or foul-smelling urine. She denies any fevers. No nausea or vomiting. She has a history of UTIs but has not had one for multiple years. She notes pain is worse slightly more on the left compared to the right. PD PAST MEDICAL HISTORY - Past Medical History Cardiovascular: Hypertension, Atrial fibrillation, Valve disorder, Other Respiratory: None Neuro: None Endocrine/Autoimmune: None GI: None CONSULTING SERVICES ASSOCIATE: None : None Psych: None Musculoskeletal: None Derm: None - Past Surgical History Past Surgical History: Yes General: Splenectomy Cardiovascular: CABG, Valve replacement, Pacemaker, Other - Present Medications Home Medications: Ambulatory Orders Medication Instructions Recorded Confirmed No Known Home Medications 12/17/23 12/20/23 - Allergies Allergies/Adverse Reactions: Allergies Allergy/AdvReac Type Severity Reaction Status Date / Time heparin Allergy Unknown Verified 12/20/23 14:30 - Social History Does the pt smoke?: No Smoking Status: Never smoker Does the pt drink ETOH?: Yes Does the pt have substance abuse?: No - Immunizations Immunizations are current?: No Immunizations: Other immun not current - POLST Patient has POLST: No PD ED PE NORMAL - Vitals Vital signs reviewed: Yes - General General: Alert and oriented X 3 - HEENT HEENT: Atraumatic - Neck Neck: Supple, no meningeal sign - Cardiac Cardiac: RRR, No murmur, No gallop, No rub - Respiratory Respiratory: No respiratory distress, Clear bilaterally - Abdomen Abdomen: Normal bowel sounds, Soft, Other (Reproducible anterior lower pelvic abdominal pain on examination.) - Female Female : Deferred - Rectal Rectal: Deferred - Back Back: Other (Reproducible CVA tenderness left greater than right.) Results - Vitals Vitals: Vital Signs - 24 hr 12/20/23 14:24 Temperature 36.5 C Heart Rate 62 Respiratory 18 Rate Blood Pressure 124/80 O2 Saturation 99 Oxygen O2 Source Room air - Labs Labs: Laboratory Tests 12/20/23 12/20/23 12/20/23 14:37 15:09 15:09 WBC 14.5 H RBC 4.06 L Hgb 12.8 Hct 37.5 MCV 92.4 MCH 31.5 H MCHC 34.1 RDW 13.9 Plt Count 462 H MPV 8.8 Neut # (Auto) Not Reportable Lymph # (Auto) Not Reportable Alfalfa # (Auto) Not Reportable Eos # (Auto) Not Reportable Baso # (Auto) Not Reportable Absolute Nucleated RBC Not Reportable Total Counted 100 Band Neuts % (Manual) 0 Abnorm Lymph % (Manual) 0 Nucleated RBC % Not Reportable Neutrophils # (Manual) 9.6 H Lymphocytes # (Manual) 2.8 Monocytes # (Manual) 1.5 H Eosinophils # (Manual) 0.7 Basophils # (Manual) 0.0 Differential Comment MANUAL DIFFERENTIAL Platelet Estimate INCREASED (>450,000) Platelet Morphology NORMAL APPEARANCE RBC Morph Micro Appear NORMAL APPEARANCE Sodium 137 Potassium 3.8 Chloride 105 Carbon Dioxide 26 Anion Gap 6.0 BUN 12 Creatinine 0.5 L Estimated GFR (MDRD) 137 Glucose 89 Calcium 9.5 Total Bilirubin 0.4 AST 18 ALT 15 Alkaline Phosphatase 79 Total Protein 6.6 Albumin 4.2 Globulin 2.4 Albumin/Globulin Ratio 1.8 Lipase 51 Urine Color LIGHT YELLOW Urine Clarity CLOUDY Urine pH 6.0 Ur Specific [place] <=1.005 Urine Protein NEGATIVE Urine Glucose (UA) NEGATIVE Urine Ketones NEGATIVE Urine Occult Blood TRACE-INTA Urine Nitrite NEGATIVE Urine Bilirubin NEGATIVE Urine Urobilinogen 0.2 (NORMAL) Ur Leukocyte Esterase SMALL H Urine RBC 0-5 Urine WBC 6-10 H Ur Squamous Epith Cells NONE SEEN Urine Bacteria Few Ur Microscopic Review INDICATED Urine Culture Comments INDICATED Urine HCG, Qual NEGATIVE PD Medical Decision Making - ED course Complexity details: reviewed old records, reviewed results ED course: Patient is a 38-year-old presenting to the emergency department with symptoms as listed above. She notes that have been going on since Friday. She was seen here in the emergency department and tested negative for UTI. Patient was drinking lots of water at home and continued to have symptoms that were progressively worsening. Patient denies any fevers but has worsening lower pelvic pain and back pain. She notes worsening hesitancy and frequency with her urination. Vital stable on arrival she is afebrile nontachycardic. Physical exam shows abdomen is soft but reproducible pelvic and lower abdominal tenderness with positive left-sided CVA tenderness. Given patient's symptoms repeat urine analysis performed here in the emergency department shows UA is negative for but positive for UTI with leukocyte esterase and 6-10 white blood cells in her urine. Patient also has slightly elevated leukocytosis at 14.5. Patient CT scan of abdomen without contrast to evaluate for possible stone this shows no signs of nephro or urolithiasis. There appears to be of right renal nodular hypodensity at 1.7 cm. Suggesting possible cyst recommending follow-up with renal ultrasound for correlation. There additionally is multinodular breast parenchyma recommending follow-up mammogram. Patient updated on findings and given her history she was aware of breast parenchyma findings and was not aware of right renal cyst. Patient's pain is mainly on the left low suspicion for this causing her symptoms or worsening her pain. Patient will follow-up with providers who performed her biopsy in 2020 in [place]. Patient feels comfortable following up with them and is able to get a hold of them on her own. Patient has no other acute findings on CT scan. She w as given her first dose of antibiotics here in the emergency department. Patient will be covered for UTI for her symptoms. Patient instructed to follow- up with PCP and providers in [place]. She was also instructed to return with any fevers worsening pain nausea vomiting difficulty urinating or any other new or worsening symptoms. Patient understands and is agreeable with this plan. Departure - Departure Disposition: 01 Home, Self Care Clinical Impression: UTI (urinary tract infection), Lower abdominal pain Condition: Good Instructions: ED Bladder Infec Cystitis Female Ch Comments: You were seen here in the emergency department for your urinary symptoms your urine does show signs of UTI we will culture and send the results and the results will return in a few days. You should continue to drink lots of water take antibiotics as prescribed. For findings on CT scan please follow-up in the outpatient setting with your providers in [place] as you did in 2020. Please return with any worsening pain any right-sided flank pain any fevers persistent difficulty urinating or any other new or worsening symptoms. Forms: PCP List
[2023-12-20 14:59] LABS: BACTERIA,URINE Few /HPF (None Seen); RBC,URINE 0-5 /HPF (0-5); SQUAMOUS EPITHELIAL CELL,UR NONE SEEN (<= Few)
[2023-12-20 15:14] LABS: BASOPHILS % (AUTO) 0.8 %; EOSINOPHILS % (AUTO) 3.5 %; HCT - HEMATOCRIT 37.5 % (37.0-47.0); HGB - HEMOGLOBIN 12.8 g/dL (12.0-16.0); LYMPHOCYTES % (AUTO) 19.9 %; MEAN CORPUSCULAR HEMOGLOBIN 31.5 pg (27.0-31.0); MEAN CORPUSCULAR HGB CONC 34.1 g/dL (32.0-36.0); MEAN CORPUSCULAR VOLUME 92.4 fL (81.0-99.0); MEAN PLATELET VOLUME 8.8 fL (7.9-10.8); MONOCYTES % (AUTO) 10.5 %; NEUTROPHILS % (AUTO) 64.9 %; PLT - PLATELET COUNT 462 10^3/uL (130-450); RED BLOOD COUNT 4.06 10^6/uL (4.20-5.40); RED CELL DISTRIBUTION WIDTH 13.9 % (12.0-15.0); WHITE BLOOD COUNT 14.5 x10^3/uL (4.8-10.8)
[2023-12-20 15:18] LABS: ABNORMAL LYMPHS % (MANUAL) 0 %; BAND NEUTROPHILS % (MANUAL) 0 %
[2023-12-20 15:34] LABS: ALBUMIN 4.2 g/dL (3.2-5.5); ALBUMIN/GLOBULIN RATIO 1.8 (1.0-2.2); BILIRUBIN,TOTAL 0.4 mg/dL (0.2-1.0); CALCIUM 9.5 mg/dL (8.5-10.3); CREATININE 0.5 mg/dL (0.6-1.3); POTASSIUM 3.8 mmol/L (3.5-4.5); TOTAL PROTEIN 6.6 g/dL (6.4-8.9)
[2023-12-20 15:38] LABS: EOSINOPHILS # (MANUAL) 0.7 10^3/uL (0-0.7); LYMPHOCYTES # (MANUAL) 2.8 10^3/uL (1.5-3.5); LYMPHOCYTES % (MANUAL) 19 %; MONOCYTES # (MANUAL) 1.5 10^3/uL (0.0-1.0); NEUTROPHILS # (MANUAL) 9.6 10^3/uL (1.5-6.6)
[2023-12-20 15:39] LABS: DIFFERENTIAL COMMENT MANUAL DIFFERENTIAL; PLATELET ESTIMATE, MANUAL INCREASED (>450,000) (NORMAL); PLATELET MORPHOLOGY NORMAL APPEARANCE (NORMAL); RBC MORPHOLOGY (MULTIPLE) NORMAL APPEARANCE (NORMAL)
--- NOTE | 2023-12-20 16:36 | CT Report ---
PROCEDURE: Abdomen/Pelvis WO INDICATIONS: pelvic pressure and urinary symptoms TECHNIQUE: Helical axial CT of the abdomen and pelvis was obtained without intravenous contrast and reformatted in multiple planes. Radiation dose reduction was achieved utilizing automated exposure co ntrol or adjustment of mA and/or kV according to patient size. COMPARISON: None. FINDINGS: Lower thorax: The lung bases are clear. Heart size normal. No hiatal hernia. Abnormal nodular breas t parenchyma, partially imaged. Paracentral right nodule measures up to 2.5 cm. Intracardiac pacer le ads as well as midline sternal wires and epicardial leads noted as well Liver: Normal in size and attenuation. No contour deformity present. Biliary system: No calcified cholelithiasis or pericholecystic inflammation. No evidence of bile du ct dilatation. Pancreas: Unremarkable without mass or inflammation evident. Spleen: Splenectomy Adrenals: Normal morphology and density. Reproductive system: Unremarkable as visualized. Urinary system: Normal renal size and attenuation. No renal calculi, hydronephrosis, or solid mass p resent. Urinary bladder unremarkable. Right renal hypodensity, 1.7 cm Gastrointestinal system: The bowel appears unremarkable with no evidence of bowel obstruction or inf lammation. The stomach appears unremarkable. Moderate fecal debris throughout the colon Peritoneal spaces: No mesenteric or retroperitoneal adenopathy. No free air. No free fluid. Vasculature: The IVC, aorta and iliac vasculature are unremarkable. Abdominal wall: Abdominal wall is intact without evidence of ventral or inguinal hernias. Musculoskeletal: Normal bone mineralization. No acute fractures. IMPRESSION: Right renal nodular hypodensity, 1.7 cm. Possible cyst. Consider follow-up renal ultrasound correlati on. Abnormal multinodular breast parenchyma, partially imaged. Correlate with mammogram Chronic findings include pacemaker, splenectomy, sternotomy Reviewed by: Brice Sales MD on 12/20/2023 3:35 PM [facility] Approved by: Brice Sales MD on 12/20/2023 3:35 PM [facility] Station ID: [id number]
[2023-12-20] MEDS: KETOROLAC 15 MG/ML VIAL IVP STA (17:36)
[2023-12-20] MEDS: cephALEXin 250 MG CAPSULE PO STA (17:36)
[2023-12-20 17:57] VITALS: BP 121/76
== END 2023-12-20 17:57 | disposition home or self-care (01) ==
LOC: ED 14:18
DX: N39.0 Urinary tract infection, site not specified (principal); R10.30 Lower abdominal pain, unspecified; R93.421 Abnormal radiologic findings on diagnostic imaging of right kidney
CPT/HCPCS: 36415; 74176; 80053; 81001; 81025; 83690; 85025; 87077; 87086; 96374; 99283; 99284; A9270; 81003